=== PATIENT | female | born 1985 | race Two or more races ===

== ENCOUNTER 2021-01-01 14:17 | Emergency (ER) | payer BC ==
[~2021-01-01] VITALS: Ht 167.6 cm; Wt 77.1 kg
[2021-01-01] MEDS ORDERED: PRENATABS RX T1 EACH PO (14:23)
[2021-01-01] MEDS ORDERED: ECOTRIN81 MG PO (14:23)
[2021-01-01] MEDS ORDERED: FOLIC ACID1 MG PO (14:23)
[2021-01-01] MEDS ORDERED: OMEPRAZOLE20 MG PO (14:47)
== END 2021-01-01 19:38 | disposition home or self-care (01) ==
LOC: ER 14:17
DX: R10.13 Epigastric pain (principal)